=== PATIENT | female | born 1990 | race Hispanic/Latino ===

== ENCOUNTER → 2021-12-12 | Outpatient (CLI) | payer BC ==
[~2021-12-12] MED LIST: IOHEXOL 350 MG/ML 100ML INFUS..BTL IV ONE
== END | disposition home or self-care (01) ==
LOC: RAH 09:55
PROVIDERS: ATTEND Physician Assistant Medical
DX: Z31.41 Encounter for fertility testing (principal); N88.2 Stricture and stenosis of cervix uteri
CPT/HCPCS: 74740; 58340; Q9967